=== PATIENT | male | born 1970 | race Caucasian/White ===

== ENCOUNTER 2020-06-01 19:50 | Emergency (ER) | payer OTHER, SELFPAY ==
--- NOTE | ~2020-06-01 | CT_ITS ---
EXAMINATION: CT abdomen pelvis wo con DATE: 06/01/2020 20:16 INDICATION: Left-sided abdomen pain. TECHNIQUE: Computed tomography (CT) of the abdomen and pelvis was performed without intravenous contr ast. The dose-length product was 1332.50 mGy-cm. Automated exposure control and iterative reconstruct ion technique were employed. COMPARISON: CT dated 06/27/2018. FINDINGS: Lung bases are unremarkable. Heart size normal. No significant pleural or pericardial effus ion. No significant vascular abnormality. No lymphadenopathy. Nonobstructive bowel gas pattern. No ab normal pelvic masses or fluid collections. Normal appendix. Fat-containing umbilical hernia. Status p ost left nephrectomy. Small amount of residual soft tissue near the nephrectomy bed contiguous with t he adrenal gland, consistent with resolving hematoma. Moderate lumbar spondylosis. The liver, spleen, pancreas, right adrenal gland and right kidney are unremarkable. Gallbladder is pr esent. Small ventral hernia containing fat. Small fat-containing umbilical hernia. No abnormal pelvic masses or fluid collections. IMPRESSION: 1. No acute abdominal abnormality. 2: Improved postsurgical changes in the left upper abdomen from previous nephrectomy. Small residual chronic hematoma/seroma contiguous with the adrenal gland. Reviewed, dictated and finalized at location A. GE WEAVER IMPRESSION: 1. No acute abdominal abnormality. 2: Improved postsurgical changes in the left upper abdomen from previous nephre ctomy. Small residual chronic hematoma/seroma contiguous with the adrenal gland .
[2020-06-01 19:53] VITALS: BP 137/87; PULSE 78; RESP 20; TEMP 36.6; O2SAT 96
--- NOTE | 2020-06-01 20:07 | ED.GENADULT ---
HPI - General Adult General Chief complaint: Abdominal Pain Stated complaint: ABD PAIN, BACK PAIN Time Seen by Provider: 06/01/20 20:00 Source: RN notes reviewed History of Present Illness HPI narrative: Patient presents emergency room from home for left-sided abdominal pain. Patient states he woke with pain at approximately 8 AM this morning the pain is located left lower abdomen and does not radiate described as aching in nature associated with nausea patient denies having vomiting or diarrhea he states he does currently have stage IV renal cell carcinoma in his left kidney has been removed he is followed at [facility] and is currently in between chemotherapy treatments he denies any fevers or chills chest pain shortness of breath diarrhea or any other symptoms Related Data Home Medications Medication Instructions Recorded Confirmed axitinib 5 mg tablet 5 mg PO ONCE tablet 01/04/20 01/11/20 hydrocodone 5 mg-acetaminophen 325 1 tablet PO Q8H PRN 01/04/20 01/11/20 mg tablet levothyroxine 50 mcg capsule 50 mcg PO DAILY 01/04/20 01/11/20 loperamide 2 mg capsule 2 mg PO Q6H PRN 01/04/20 01/11/20 ondansetron HCl 8 mg tablet 8 mg PO Q12H 01/04/20 01/11/20 sildenafil (pulm.hypertension) 20 20 mg PO TID PRN 01/04/20 01/11/20 mg tablet Allergies Allergy/AdvReac Type Severity Reaction Status Date / Time No Known Allergies Allergy Unverified 06/02/18 21:51 Review of Systems Review of Systems: Narrative: Gen.: Denies fevers or chills ENT: Denies congestion Respiratory: Denies shortness of breath or cough CV: Denies chest pain or palpitations GI: See HPI denies burning, urgency, frequency or hematuria Musculoskeletal: Denies back pain or muscle pain Neuro: Denies numbness, tingling, weakness or focal weakness Skin: Denies rash Except as documented, all other systems reviewed and negative PMF Past Medical History Medical History (Updated 06/01/20 @ 22:05 by Bryson Harrison DO) Kidney carcinoma Surgical History Surgical History H/O kidney removal Previous back surgery Social History Social History (Reviewed 06/01/20 @ 20:08 by LIBBY Nogueira Smoking status: Never smoker Second hand tobacco smoke exposure: No Alcohol intake: current Substance use: never Gender identity (if verbalized by the patient): Male Exam Narrative: Exam Narrative: APPEARANCE: No acute distress, nontoxic, resting in bed HEENT: Normocephalic, atraumatic, OMM RESPIRATORY: No respiratory distress, clear to auscultation bilaterally with no rhonchi wheezing or rales CARDIOVASCULAR: RRR s murmur ABDOMINAL: Soft, nondistended tender to palpation over left lateral abdomen and left flank no tenderness in right upper quadrant right lower quadrant and left upper quadrant pain increased with rotation of the torso right lower quadrant no rebound or guarding MUSCULOSKELETAl: Moves all extremities. No clubbing, cyanosis or edema. NEURO: Awake and alert. Following commands, speech normal, no focal deficits SKIN:: Warm, dry. Normal Color PSYCHIATRIC: Normal affect/mood Course Course Emergency Course: Upon further discussion with the patient it appears the patient has been moving over the past week and lifting boxes suspect possible musculoskeletal injury patient is already on hydrocodone at home which she will take for pain will refrain from prescribing any muscle relaxers the patient also cannot take NSAIDs secondary to solitary kidney Discussed with patient results of workup and diagnosis. Discussed need for follow-up with primary care, proper use of medication, and reasons to return to the emergency department. Patient understands and agrees to current treatment plan Vital Signs Vital signs: Vital Signs Temperature 97.9 F 06/01/20 19:53 Pulse Rate 78 06/01/20 19:53 Respiratory Rate 20 06/01/20 19:53 Blood Pressure 137/87 06/01/20 19:53 Pulse Ox
[2020-06-01 20:13] LABS: Basophils Percent Auto 0.5 % (0.2-1.2); Eosinophils Absolute Auto 0.1 K/mm3 (0-0.3); Eosinophils Percent Auto 1.7 % (0-4.4); Hematocrit 41.2 % (42.0-52.0); Hemoglobin 13.7 g/dL (14.0-18.0); Immature Granulocyte Absolute 0.03 K/mm3 (0.00-0.031); Immature Granulocyte Percent A 0.4 % (0-0.5); Lymphocytes Absolute Auto 1.43 K/mm3 (0.9-3.2); Lymphocytes Percent Auto 18.3 % (18.3-44.2); Mean Corpuscular HGB Conc 33.3 g/dl (32-36); Mean Corpuscular Hemoglobin 30.3 pg (26-34); Mean Corpuscular Volume 91.2 fl (80-100); Mean Platelet Volume 8.9 fl (7.4-10.4); Monocytes Absolute Auto 0.6 K/mm3 (0.1-0.6); Monocytes Percent Auto 7.9 % (2.6-8.5); Neutrophils Absolute Auto 5.6 K/mm3 (1.3-6.7); Neutrophils Percent Auto 71.2 % (45.5-73.1); Platelet Count Result 277 k/mm3 (150-375); Red Blood Count 4.52 M/mm3 (4.6-6.20); Red Cell Distribution Width 12.3 % (11.5-14.5); White Blood Count 7.8 K/mm3 (4.5-10.0)
[2020-06-01] MEDS: MORPHINE SULFATE (*CRX) 4 MG/ML INJ IV PUSH (20:24)
[2020-06-01] MEDS: ONDANSETRON INJ 4 MG/2 ML VIAL IV PUSH (20:24)
[2020-06-01] MEDS: SODIUM CHLORIDE 0.9% IV 1,000 ML 999 ML IV CONT (20:24)
[2020-06-01 20:25] LABS: Alanine Aminotransferase 29 U/L (4-50); Albumin Level 4.2 g/dL (3.5-5.1); Alkaline Phosphatase 79 U/L (38-126); Anion Gap 10 mmol/L (8-16); Aspartate Amino Transferase 38 U/L (17-59); Bilirubin,Total 0.3 mg/dL (0.2-1.3); Blood Urea Nitrogen 21 mg/dL (9-20); Calcium 9.4 mg/dL (8.4-10.2); Carbon Dioxide 26 mmol/L (22-30); Chloride 103 mmol/L (98-107); Estimated CRCL calculation 78 ml/min; Estimated Glomerular Filt Rate 58; Glucose 112 mg/dL (75-110); Lipase 109 U/L (23-300); Potassium 4.6 mmol/L (3.4-5.0); Sodium 139 mmol/L (137-145)
[2020-06-01 21:54] LABS: Add Urine Microscopic? NO; Appearance Urine Clear (Clear); Bilirubin Urine Negative (Negative); Blood Urine Negative (Negative); Color Urine Yellow (Yellow); Glucose Urine UA Negative (Negative); Ketones Urine Negative (Negative); Leukocyte Esterase Ur Negative LEU/UL (Negative); Nitrate Urine Negative (Negative); Protein Urine Negative (Negative); Specific Grav Ur 1.026 (1.001-1.035); Urobilinogen Urine Negative mg/dL (<2.0)
[2020-06-01] MEDS: MORPHINE SULFATE (*CRX) 2 MG/ML INJ IV PUSH (22:10)
[2020-06-01 22:40] VITALS: BP 139/80; PULSE 59; RESP 16; TEMP 36.8; O2SAT 97
== END 2020-06-01 22:42 | disposition home or self-care (01) ==
PROVIDERS: Emergency Provider Emergency Medicine; PCP Physician Assistant
DX: R10.32 Left lower quadrant pain (principal); C64.2 Malignant neoplasm of left kidney, except renal pelvis; Z90.5 Acquired absence of kidney
CPT/HCPCS: 36415; 74176; 80053; 81003; 83690; 85025; 96361; 96374; 96375; 96376; 99284; J2270; J2405; J7030

== ENCOUNTER 2020-08-22 10:58 | Outpatient (CLI) | payer OTHER, SELFPAY ==
--- NOTE | ~2020-08-22 | XR_ITS ---
EXAMINATION: XR lumbar spine 6V w bending EXAM DATE: 08/22/2020 11:30 INDICATION: M54.5 - Low back pain. No known recent injury. TECHNIQUE: Lumber spine frontal, lateral, bilateral oblique projections. Coned down frontal and lat eral L5-S1 lumbar projections for interpretation. Additional lateral flexion and lateral extension p rojections obtained. There are no prior studies for comparison. FINDINGS: Vertebral bodies are aligned in the lateral projections. There is mild to moderate disc dis ease at L4-5 and L5-S1, mild at the other lumbar levels. There is no spondylolysis. There is moderate lumbar facet arthropathy at the mid and lower lumbar levels. Vertebral body heights are maintained. Sacrum, sacroiliac joints, sacral arcuate lines are intact. Paraspinal soft tissue is unremarkable. IMPRESSION: 1. Moderate lumbar facet arthropathy. 2. Mild to moderate lower lumbar disc disease. Reviewed, dictated and finalized at location A.
--- NOTE | ~2020-08-22 | XR_ITS ---
EXAMINATION: XR hip LT min 3V w AP pelvis EXAM DATE: 08/22/2020 11:30 INDICATION: No known recent injury provided at this time. Pain of the left hip. TECHNIQUE: Left hip frontal, crosstable lateral and 'frog-leg' projections for interpretation. Fronta l projection pelvis. There is no prior study for comparison. FINDINGS: Smooth left hip femoral head contour, no radiographic evidence of avascular necrosis. Ther e is mild symmetric bilateral hip primary osteoarthritis. There are no acute fractures or dislocation s identified. There is no subcutaneous gas. The soft tissue is unremarkable. There are no radiopa que foreign bodies. IMPRESSION: Mild bilateral hip osteoarthritis. Reviewed, dictated and finalized at location A.
== END 2020-08-22 10:59 | disposition home or self-care (01) ==
PROVIDERS: PCP Physician Assistant; Visit Provider Physician Assistant
DX: M16.0 Bilateral primary osteoarthritis of hip (principal); M51.36 Other intervertebral disc degeneration, lumbar region
CPT/HCPCS: 72114; 73502

== ENCOUNTER 2021-02-04 08:32 | Outpatient (CLI) | payer OTHER, SELFPAY ==
--- NOTE | 2021-02-04 | EST_ITS ---
Patient Info Name: Eric Andujar Age: 50 years : 1970 Gender: Male Ht: 70 in Wt: 175 lbs BSA: 1.99 m2 HR: 60 bpm BP: 155 / 97 mmHg Heart Rhythm: Sinus Rhythm Exam Date: 02/04/2021 9:56 AM Exam Location: [facility] Stress Patient Status: Outpatient Admit Date: 02/04/2021 Staff Ordering Physician: Brian Gusman PA-C Attending Provider: Brian Gusman PA-C Exercise Technologist: Piedad Dean CT Exercise Physician: Josue Singelton DO Exam Type: CA stress romana w NM Study Info Indications R42 - Dizziness and giddiness R06.02 - Shortness of breath A regadenoson stress test was performed. Summary 1. 1. Negative lexiscan stress test for ischemic ST changes by ECG criteria. 2. 2. Baseline hypertension. 3. 3. Nuclear scan to follow and will be reported separately. Please correlate with it. 4. 4. Patient informed of the above results. Protocol: Lexiscan Rest HR: 60 bpm Peak HR: 77 bpm Rest Sys BP: 155 mmHg Peak Sys BP: 157 mmHg Max Pred HR: 169 bpm % Max Pred HR: 46 % Target HR: 144 bpm Max RPP: 12,089 bpm*mmHg Termination Reason: Completed protocol Cardiac Symptoms: Shortness of breath Rest Pineda BP: 97 mmHg Peak Pineda BP: 100 mmHg Total Dose: 0.4 mg Resting ECG Sinus rhythm, cannot r/o septal infarct, age indeterminate. Stress ECG No ST changes. Arrhythmias None. Report Signatures
--- NOTE | ~2021-02-04 | NM_ITS ---
EXAMINATION: NM romana stress w perfusion DATE: 02/04/2021 11:01 INDICATION: Shortness of breath, dizziness and giddiness TECHNIQUE: Rest images were obtained following intravenous administration of 9.7 mCi Tc99m tetrofosmi n (Myoview). The patient was infused intravenously with Lexiscan (Regadenoson). Then, 29.4 mCi Tc99m tetrofosmin (Myoview) was administered intravenously, and stress images were obtained. Data was recon structed into short axis and horizontal and vertical long axis SPECT images. Gated SPECT images were also obtained. COMPARISON: None. FINDINGS: There is no definite reversible or fixed perfusion abnormality to suggest ischemia or infar ction. There is normal left ventricular chamber size, wall motion and ejection fraction. Left ventr icular ejection fraction measures 48%. IMPRESSION: 1. Normal myocardial perfusion at rest and during stress. 2. Left ventricular ejection fraction measuring 48%. Reviewed, dictated and finalized at location A.
== END 2021-02-04 08:33 | disposition home or self-care (01) ==
PROVIDERS: PCP Physician Assistant; Visit Provider Physician Assistant
DX: R06.02 Shortness of breath (principal); R42 Dizziness and giddiness
CPT/HCPCS: 78452; 93017; A9502; J2785

== ENCOUNTER 2021-02-25 14:07 | Outpatient (CLI) | payer OTHER, SELFPAY ==
--- NOTE | 2021-02-25 17:09 | WPDPFTINT ---
PFT Procedure Performed PFT Procedure Performed Spirometry with Pre/Post Bronchodilator Plethysmography (Lung Vol) Diffusing Cap (DLCO) Flow Vol Loop PFT Interpretation This is a pulmonary function test with pre and post-bronchodilator spirometry, plethysmography and diffusing capacity. The test was performed and results interpreted in accordance with the 2019 and 2005 ATS/ERS Task Force guidelines respectively using the Global Lung Function Initiative-2012 reference equations. Patient demonstrated good effort and cooperation. Reproducibility criteria were met. The quality of the pre bronchodilator spirometry maneuver was Grade A and post bronchodilator spirometry maneuver was Grade A. Findings: Spirometry: the contour of the inspiratory and expiratory flow tracing are normal. The pre bronchodilator FVC is 4.26 L, 83% predicted. The pre bronchodilator FEV1 is 3.35 L, 84% predicted. The FEV1: FVC ratio 79%. The post bronchodilator FVC is 4.63 L, representing a 9% increase. The post bronchodilator FEV1 is 3.70 L, representing a 10% increase. Plethysmography: The total lung capacity is 6.08 L, 85% predicted. The functional residual capacity is 2.46 L, 67% predicted. The residual volume is 1.61 L, 77% predicted. Diffusing capacity: The absolute diffusion capacity is 19.6, 64% predicted. The diffusing capacity corrected for alveolar volume is 3.38, 76% predicted. Impression: The spirometry is normal without evidence of an obstructive abnormality. There is no significant improvement after inhaling a single dose of albuterol. The lung volumes are normal. The diffusing capacity is normal. There are no prior studies for comparison
== END 2021-02-25 14:08 | disposition home or self-care (01) ==
LOC: ANHPFT 14:08
PROVIDERS: PCP Internal Medicine; Visit Provider Physician Assistant
DX: R06.02 Shortness of breath (principal)
CPT/HCPCS: 94060; 94726; 94729

== ENCOUNTER 2021-04-10 08:24 | Emergency (ER) | payer OTHER, SELFPAY ==
[2021-04-10] VITALS (23 sets, daily range): BP systolic 139–160; BP diastolic 83–99; PULSE 40–63; RESP 9–18; TEMP 36.6–37; O2SAT 96–100
--- NOTE | ~2021-04-10 | XR_ITS ---
EXAMINATION: XR chest 2V DATE: 04/10/2021 09:37 INDICATION: Left-sided chest pain TECHNIQUE: PA and lateral views of the chest are obtained. COMPARISON: 05/25/2018 FINDINGS: The lungs are free of acute opacities. There is atelectasis of the lung bases. There is no pleural effusion or pneumothorax. The cardiomediastinal silhouette is normal. There are bridging oste ophytes at multiple levels in the spine, consistent with diffuse idiopathic skeletal hyperostosis (DI SH). IMPRESSION: 1. No acute cardiopulmonary abnormality. Reviewed, dictated and finalized at location B.
--- NOTE | ~2021-04-10 | CT_ITS ---
EXAMINATION: CT abdomen pelvis wo con DATE: 04/10/2021 11:38 INDICATION: Left-sided flank pain, nausea and vomiting TECHNIQUE: Computed tomography (CT) of the abdomen and pelvis was performed without intravenous contr ast. Automated exposure control and iterative reconstruction technique were employed. The dose-length product was 604.65 mGy-cm. COMPARISON: None FINDINGS: Mild atelectasis in the lingula and bilateral lower lobes. 3-4 mm intrafissural lymph node along the inferior left major fissure. Heart size is normal. Decreased attenuation of the blood pool relative t o the myocardium consistent with anemia. No pericardial effusion. Liver, gallbladder, spleen, pancrea s, right kidney and bilateral adrenal glands are normal. Status post left nephrectomy for reported renal cell carcinoma. There is nodular soft tissue at the p osterior medial margin of the nephrectomy bed likely indicating the underlying posterior medial diaph ragm and proximal psoas muscle and which along with multiple enlarged left para-aortic lymph nodes mo st consistent with local recurrence and local metastatic disease. Mild scattered diverticulosis without adjacent inflammatory change to suggest diverticulitis. Small b owel and appendix are normal. Tiny fat-containing umbilical and supraumbilical ventral hernias. Bladd er is normal. No free intraperitoneal gas or fluid. Mild lumbar dextrocurvature with moderate spondyl osis. There are bridging osteophytes at multiple levels in the lower thoracic spine consistent with d iffuse idiopathic skeletal hyperostosis (DISH). No suspicious lytic or blastic bone lesions. IMPRESSION: 1. Nodular soft tissue deposits at the left nephrectomy bed and enlarged left para-aortic lymph nodes concerning for local recurrence of renal cell carcinoma and local metastatic disease. Reviewed, dictated and finalized at location A. IMPRESSION: 1. Nodular soft tissue deposits at the left nephrectomy bed and enlarged left p jazz-aortic lymph nodes concerning for local recurrence of renal cell carcinoma and local metastatic disease.
--- NOTE | 2021-04-10 09:23 | ECG_ITS ---
Measurements Intervals [place] Rate: 44 P: -3 NC: 184 QRS: 14 QRSD: 94 T: 48 QT: 433 QTc: 374 Interpretive Statements SINUS BRADYCARDIA EARLY PRECORDIAL R/S TRANSITION ABNORMAL ECG Electronically Signed On 04-10-2021 10:30:42 CDT by Josue Singleton D.O.
--- NOTE | 2021-04-10 09:24 | ED.ABDPAIN ---
HPI - Abdominal Pain General Chief Complaint: Abdominal Pain Stated Complaint: abd pain/vomiting Time Seen by Provider: 04/10/21 09:05 Source: patient Mode of arrival: ambulatory Limitations: no limitations History of Present Illness HPI narrative: This is a 50 year old male that presents to the ER for left sided mid back pain present over the last couple of weeks. Reports the pain is intermittent in nature. Worse with certain positions. The pain radiated from the left flank into the abdomen and chest. No known alleviating factors. Reports history of renal cell carcinoma and history of left nephrectomy. His oncologist is at [facility]. Reports nausea and vomiting today with the pain which prompted him to be seen. Denies fever, cough, shortness of breath, or lower extremity edema. Related Data Home Medications Medication Instructions Recorded Confirmed hydrocodone 5 mg-acetaminophen 325 1 tablet PO Q8H PRN 01/04/20 03/16/21 mg tablet loperamide 2 mg capsule 2 mg PO Q6H PRN 01/04/20 03/16/21 ondansetron HCl 8 mg tablet 8 mg PO Q12H 01/04/20 03/16/21 sildenafil (pulm.hypertension) 20 20 mg PO TID PRN 01/04/20 03/16/21 mg tablet levothyroxine 50 mcg capsule 200 mcg PO DAILY cap 08/22/20 03/16/21 cabozantinib 40 mg tablet 40 mg PO DAILY 01/28/21 03/16/21 Allergies Allergy/AdvReac Type Severity Reaction Status Date / Time No Known Allergies Allergy Verified 04/10/21 10:28 Review of Systems Review of Systems: CONSTITUTIONAL: Denies fever CARDIOVASCULAR: Reports chest pain. Denies edema. RESPIRATORY: Denies cough or dyspnea. GASTROINTESTINAL: Reports abdominal pain, nausea, vomiting GENITOURINARY: Denies dysuria or hematuria. MUSCULOSKELETAL: Reports back pain, joint pain, and myalgia. All systems reviewed & are unremarkable except as noted in HPI and below PMFSH Past Medical History Medical History (Updated 04/10/21 @ 14:16 by Lisa Parr PA-C) Kidney carcinoma Surgical History Surgical History H/O kidney removal Previous back surgery Social History Social History Smoking status: Never smoker Second hand tobacco smoke exposure: No Alcohol intake: current Alcohol use details: very little Substance use: never Gender identity (if verbalized by the patient): Male Exam Narrative: GENERAL: Well-appearing, well-nourished, and in no acute distress. HEAD: Normocephalic, atraumatic. EYES: EOMI. ENT: Mucous membranes moist. Oropharynx without tonsillar hypertrophy exudate or other lesions. CHEST: Clear to auscultation. No respiratory distress. No wheezes rales or rhonchi HEART: Regular rate and rhythm. No murmur heard. Normal peripheral pulses. ABDOMEN: Soft, nondistended, normal active bowel sounds. Tender to palpation throughout the left side of the abdomen, without guarding. No CVA tenderness EXTREMITIES: Normal range of motion. No edema. SKIN: Warm, dry, no rash. NEURO: No focal deficits. Alert and oriented x3. PSYCH: Normal mood and affect Course Consultations Consultation #1: Spoke with SAURAV Torres with Dr. Cantor about patient and workup. Patient will be placed on a Holter monitor to further evaluate bradycardia. He will follow up with patient in clinic. Date: 04/10/21 Time: 13:30 Vital Signs Vital signs: Vital Signs Blood Pressure 160/94 H 04/10/21 08:29 Pulse Oximetry 97 04/10/21 08:29 Temperature 97.8 F 04/10/21 10:47 Pulse Rate 47 L 04/10/21 12:51 Respiratory Rate 13 04/10/21 12:51 Blood Pressure 150/84 H 04/10/21 12:51 Pulse Oximetry 99 04/10/21 12:51 MDM - Abdominal Pain MDM Narrative Medical decision making narrative: Patient presents the emergency department for left flank pain radiating into the abdomen. He is afebrile and nontoxic-appearing. Vitals are stable. Patient's heart rate in the 50s and 60s. He does bradyca
[2021-04-10 10:36] LABS: Basophils Absolute Auto 0.1 K/mm3 (0.0-0.1); Eosinophils Absolute Auto 0.2 K/mm3 (0-0.3); Eosinophils Percent Auto 3.8 % (0-4.4); Hematocrit 36.7 % (42.0-52.0); Hemoglobin 12.2 g/dL (14.0-18.0); Immature Granulocyte Absolute 0.02 K/mm3 (0.00-0.031); Immature Granulocyte Percent A 0.3 % (0-0.5); Lymphocytes Absolute Auto 1.28 K/mm3 (0.9-3.2); Lymphocytes Percent Auto 22.3 % (18.3-44.2); Mean Corpuscular HGB Conc 33.2 g/dl (32-36); Mean Corpuscular Hemoglobin 31.9 pg (26-34); Mean Corpuscular Volume 95.8 fl (80-100); Mean Platelet Volume 8.7 fl (7.4-10.4); Monocytes Absolute Auto 0.5 K/mm3 (0.1-0.6); Monocytes Percent Auto 8.6 % (2.6-8.5); Neutrophils Absolute Auto 3.7 K/mm3 (1.3-6.7); Platelet Count Result 252 k/mm3 (150-375); Red Blood Count 3.83 M/mm3 (4.6-6.20); Red Cell Distribution Width 13.2 % (11.5-14.5); White Blood Count 5.7 K/mm3 (4.5-10.0)
[2021-04-10] MEDS: ONDANSETRON INJ 4 MG/2 ML VIAL IV PUSH (10:36)
[2021-04-10] MEDS: MORPHINE SULFATE (*CRX) 2 MG/ML INJ IV PUSH (10:36)
[2021-04-10 10:37] LABS: Add Urine Microscopic? NO; Appearance Urine Clear (Clear); Bilirubin Urine Negative (Negative); Blood Urine Negative (Negative); Color Urine Yellow (Yellow); Glucose Urine UA Negative (Negative); Ketones Urine Negative (Negative); Leukocyte Esterase Ur Negative LEU/UL (Negative); Nitrate Urine Negative (Negative); Protein Urine Negative (Negative); Specific Grav Ur 1.026 (1.001-1.035); Urobilinogen Urine Negative mg/dL (<2.0)
[2021-04-10 10:46] LABS: INR 0.9; Prothrombin Time 12.2 Seconds (11.1-14.7)
[2021-04-10 10:47] LABS: Partial Thromboplastin Time 26.4 SECONDS (22.3-36.8)
[2021-04-10 10:54] LABS: Alanine Aminotransferase 26 U/L (4-50); Albumin Level 4.2 g/dL (3.5-5.1); Alkaline Phosphatase 54 U/L (38-126); Anion Gap 9 mmol/L (8-16); Aspartate Amino Transferase 43 U/L (17-59); Bilirubin,Total 0.5 mg/dL (0.2-1.3); Blood Urea Nitrogen 15 mg/dL (9-20); Calcium 8.7 mg/dL (8.4-10.2); Carbon Dioxide 19 mmol/L (22-30); Chloride 112 mmol/L (98-107); Estimated CRCL calculation 108 ml/min; Estimated Glomerular Filt Rate > 60; Glucose 99 mg/dL (65-110); Lipase 51 U/L (23-300); Potassium 5.4 mmol/L (3.4-5.0); Sodium 140 mmol/L (137-145)
[2021-04-10 11:07] LABS: Troponin I < 0.012 ng/mL (0.000-0.034)
[2021-04-10] MEDS: SODIUM CHLORIDE 0.9% IV 500 ML 999 ML IV CONT (11:24)
--- NOTE | 2021-04-10 11:30 | PC.NURSE ---
Pt placed on heart monitor. Resting heart rate is in the 40s. PA Lisa aware
--- NOTE | 2021-04-10 11:31 | PC.NURSE ---
Pt off floor to CT scan
--- NOTE | 2021-04-10 12:55 | PC.NURSE ---
Pt resting heart rate still low 50s-40s. PA Lisa aware, discussed no morphine at this time. Not given
[2021-04-10] MEDS: HYDROcodone/acetaminophen (*CRX) 5-325 MG TABLET 1 TAB PO (13:02)
[2021-04-10 13:14] LABS: Potassium 4.7 mmol/L (3.4-5.0)
--- NOTE | 2021-04-17 11:57 | WPDHOLTEREM ---
Holter/Event Monitor Holter/Event Monitor Date of procedure: 04/10/21 Holter/Event Procedure: 48 Hr Holter Monitor Indications: Bradycardia Conclusion: 1. 48 hour holter monitor on 04/10/21. 2. Underlying rhythm is sinus rhythm. HR range 32-124 bpm; average HR 60 bpm. HR at 32 bpm was at 11:37. 3. There are 864 premature supraventricular complexes, 35 supraventricular couplets, 3 supraventricular bigeminy. No supraventricular tachycardia. 4. There are 3,938 premature ventricular complexes, 31 ventricular couplets, 1 ventricular triplet, 8 ventricular bigeminy, and 35 ventricular trigeminy. No ventricular tachycardia. 5. No sinoatrial or atrioventricular blocks. No significant pauses greater than 2 seconds. 6. No symptoms available for correlation.
== END 2021-04-10 14:36 | disposition home or self-care (01) ==
PROVIDERS: Physician Assistant; Emergency Provider Emergency Medicine; PCP Internal Medicine
DX: R10.9 Unspecified abdominal pain (principal); C64.2 Malignant neoplasm of left kidney, except renal pelvis; R00.1 Bradycardia, unspecified; Z90.5 Acquired absence of kidney
CPT/HCPCS: 36415; 71046; 74176; 80053; 81003; 83690; 84132; 84484; 85025; 85380; 85610; 85730; 93005; 93225; 93226; 96361; 96374; 96375; 99284; A9270; J0131; J2270; J2405; J7040

== ENCOUNTER 2022-04-04 06:18 | Emergency (ER) | payer BC, SELFPAY ==
[2022-04-04] VITALS (26 sets, daily range): BP systolic 122–166; BP diastolic 67–138; PULSE 38–65; RESP 11–20; TEMP 36.6; O2SAT 92–99
--- NOTE | ~2022-04-04 | XR_ITS ---
EXAMINATION: XR chest 1V portable DATE: 04/04/2022 07:06 INDICATION: Dyspnea TECHNIQUE: frontal view of the chest was obtained. COMPARISON: Chest radiograph dated 04/10/2021 FINDINGS: Unchanged mild elevation of left hemidiaphragm. This is new mild opacities in the left lower lung zon e. No pleural effusion or pneumothorax. Cardiomediastinal silhouette remains within normal limits for AP technique. IMPRESSION: 1. Small lung volumes with mild opacities in the left lower lung zone which could represent atelectas is/scarring or pneumonia. Reviewed, dictated and finalized at location A. IMPRESSION: 1. Small lung volumes with mild opacities in the left lower lung zone which cou ld represent atelectasis/scarring or pneumonia.
--- NOTE | ~2022-04-04 | CT_ITS ---
EXAMINATION: CTA chest PE protocol DATE: 04/04/2022 08:11 INDICATION: Shortness of breath and elevated d-dimer. TECHNIQUE: Computed tomography (CT) pulmonary angiogram of the chest was performed with 100 mL Omnipa que-350 intravenous contrast. Additional 3D reconstructions utilizing coronal maximum intensity proje ction (MIP) were performed. Automated exposure control and iterative reconstruction technique were em ployed. The dose-length product was 756.43 mGy-cm. COMPARISON: None FINDINGS: Excellent contrast opacification of the pulmonary arteries. There is mild streak artifact from dense contrast in the left brachiocephalic vein, superior vena cava and right atrium. Mild to moderate basi lar predominant scattered respiratory motion artifact. This decreases sensitivity in the smaller basi lar subsegmental pulmonary arteries. No pulmonary embolism. 3.1 x 3.0 cm right hilar mass which surro unds and narrows a short segment of the superior segmental pulmonary artery of the right lower lobe. Small left pleural effusion. Mild groundglass and linear opacities in the dependent lungs consistent with atelectasis. 7 mm nodule along the caudal-most aspect of the left major fissure. Cardiomegaly. No pericardial effusion. Thoracic aorta is normal in caliber with no dissection. Calcif ied left hilar lymph nodes consistent with old granulomatous disease. Again seen are postoperative change of prior left nephrectomy. There are a few new nodular soft tissu e deposits along the suture line at the nephrectomy bed which raises concern for local recurrence. Th e 2 largest soft tissue deposits measuring 1.6 x 1.9 cm and 2.1 x 1.5 cm. The soft tissue extends to the left davion of the diaphragm which appears thickened and with soft tissue mass eroding into the adj acent left posterior aspect of the T12 as well as the anterior margin of the medial head of the poste rior left 12th rib. Interval enlargement of left para-aortic lymphadenopathy, the largest measuring 1 .8 x 1.4 cm as well as a new enlarged retrocrural lymph node measuring 1.6 x 1.4 cm. 1 mm nonobstruct ing right renal stone. Subtle approximately 1 cm low-attenuation cyst at the upper pole of the right kidney. Persistent minimal focal perisplenic ascites. Thoracic kyphosis with chronic mild anterior we dging of a few mid and lower thoracic vertebral bodies. Moderate thoracic spondylosis with bridging o steophytes at multiple levels consistent with diffuse idiopathic skeletal hyperostosis (DISH). No oth er suspicious lytic or blastic bone lesions. IMPRESSION: 1. No pulmonary embolism. Sensitivity decreased in some of the smaller basilar subsegmental pulmonary arteries due to respiratory motion. 2. 3.1 x 3.0 cm right hilar mass which surrounds and narrows the pulmonary opacity superior segment o f the right lower lobe which is concerning for malignancy either primary or more likely metastatic ri ght hilar lymph nodes. 3. Status post left nephrectomy with new nodular soft tissue deposits the left nephrectomy bed, porti on of which appears to involve the left davion of the diaphragm and eroding into the adjacent left side of the T12 vertebral body and posterior left 12th rib suggestive of recurrent renal cell carcinoma. 4. Likely metastatic left para-aortic and retrocrural lymphadenopathy. 4. Nonobstructing 1 mm right renal stone. Reviewed, dictated and finalized at location A. IMPRESSION: 1. No pulmonary embolism. Sensitivity decreased in some of the smaller basilar subsegmental pulmonary arteries due to respiratory motion. 2. 3.1 x 3.0 cm right hilar mass which surrounds and narrows the pulmonary opac ity superior segment of the right lower lobe which is concerning for malignancy either primary or more likely metastatic right hilar lymph nod
--- NOTE | 2022-04-04 06:54 | ED.SOB ---
HPI - SOB/Dyspnea General Chief Complaint: Shortness of Breath/Dyspnea <Sly Moran MD - Last Filed: 04/04/22 06:58> Stated Complaint: SOB <Sly Moran MD - Last Filed: 04/04/22 06:58> Time Seen by Provider: 04/04/22 06:44 <Sly Moran MD - Last Filed: 04/04/22 06:58> Source: patient <Sly Moran MD - Last Filed: 04/04/22 06:58> Mode of arrival: ambulatory <Sly Moran MD - Last Filed: 04/04/22 06:58> Limitations: no limitations <Sly Moran MD - Last Filed: 04/04/22 06:58> History of Present Illness HPI Narrative: this is a 51-year-old gentleman that presents with increasing shortness of breath, for the past 5 days has been having issues with shortness of breath worsening over the last 24hours currently there is no cough no chest pain no nausea or vomiting in no fever chills, patient has a history of stage IV renal cell carcinoma with metastases and is being treated at the [facility] and currently takes a daily chemo tablet. Patient is having mild abdominal pain that he states this is usual for him nothing worse no flank pain does have some dysuria with no peripheral edema. <Sly Moran MD - Last Filed: 04/04/22 06:58> MD elicited complaint: shortness of breath <Sly Moran MD - Last Filed: 04/04/22 06:58> Onset (ago): day(s) <Sly Moran MD - Last Filed: 04/04/22 06:58> Severity: moderate <Sly Moran MD - Last Filed: 04/04/22 06:58> Exacerbating factors: nothing <Sly Moran MD - Last Filed: 04/04/22 06:58> Relieving factors: nothing <Sly Moran MD - Last Filed: 04/04/22 06:58> Related Data Home Medications: Home Medications Medication Instructions Recorded Confirmed levothyroxine 50 mcg capsule 200 mcg PO DAILY 08/22/20 04/04/22 gabapentin 300 mg capsule 300 mg PO TID 01/01/22 04/04/22 levothyroxine 100 mcg tablet 100 mcg PO DAILY 01/01/22 04/04/22 methylphenidate HCl 5 mg tablet 5 mg PO BID 01/01/22 04/04/22 oxycodone 20 mg tablet 20 mg PO PRN PRN Pain 04/04/22 04/04/22 oxycodone myristate 36 mg capsule See Rx Instructions .Route .COMPLEX 04/04/22 04/04/22 sprinkle extended release 12hr(DON'T CRUSH) (Xtampza ER) pazopanib 200 mg tablet (Votrient) 200 mg PO DAILY 04/04/22 04/04/22 prochlorperazine maleate 5 mg 5 mg PO PRN PRN Nausea 04/04/22 04/04/22 tablet <Sly Moran MD - Last Filed: 04/04/22 06:58> Allergies/Adverse Reactions: Allergies Allergy/AdvReac Type Severity Reaction Status Date / Time No Known Allergies Allergy Verified 01/01/22 15:34 <Sly Moran MD - Last Filed: 04/04/22 06:58> Review of Systems Review of Systems: All systems reviewed & are unremarkable except as noted in HPI and below <Sly Moran MD - Last Filed: 04/04/22 06:58> [facility] Past Medical History Medical History: Medical History (Updated 04/04/22 @ 09:49 by Mingo Durham MD) Kidney carcinoma <Sly Moran MD - Last Filed: 04/04/22 06:58> Surgical History Surgical History: Surgical History H/O kidney removal Previous back surgery <Sly Moran MD - Last Filed: 04/04/22 06:58> Social History Social History: Social History Smoking status: Never smoker Second hand tobacco smoke exposure: No Alcohol intake: current Alcohol use details: very little Substance use: never Gender identity (if verbalized by the patient): Male <Sly Moran MD - Last Filed: 04/04/22 06:58> Exam Const: General: healthy appearing and no acute distress <Sly Moran MD - Last Filed: 04/04/22 06:58> Limitations: no limitations <Sly Moran MD - Last Filed: 04/04/22 06:58> HENMT: Head: normal to inspection <Sly Moran MD - Last Filed: 04/04/22 06:58> Face/N
--- NOTE | 2022-04-04 07:02 | PC.NURSE ---
Pt given warm blanket, Report given to CLAY Rangel
[2022-04-04] MEDS: IPRATROPIUM 0.5 MG/ALBUTEROL SULFATE 2.5 MG AMPUL.NEB 3 ML INHALATION (07:06)
--- NOTE | 2022-04-04 07:10 | PC.NURSE ---
REPORT FROM CLAY BRAVO AT THIS TIME. PT IS GETTING LABS DRAWN, EKG, NEB TX, XRAY. AT BEDSIDE. NAD NOTED. WILL CONTINUE TO MONITOR.
--- NOTE | 2022-04-04 07:14 | ECG_ITS ---
Measurements Intervals [place] Rate: 55 P: 15 MS: 200 QRS: 4 QRSD: 105 T: 33 QT: 417 QTc: 400 Interpretive Statements SINUS BRADYCARDIA MINIMAL VOLTAGE CRITERIA FOR LVH, CONSIDER NORMAL VARIANT BORDERLINE ECG COMPARED TO ECG 04/10/2021 09:58:33 NO SIGNIFICANT CHANGES Electronically Signed On 04-04-2022 16:33:12 CDT by Quan Mast M.D.
[2022-04-04 07:17] LABS: Basophils Absolute Auto 0.02 K/mm3 (0.00-0.10); Basophils Percent Auto 0.4 % (0.0-1.0); Eosinophils Absolute Auto 0.13 K/mm3 (0.02-0.50); Eosinophils Percent Auto 2.3 % (1.0-6.0); Hematocrit 32.3 % (40.0-54.0); Hemoglobin 10.6 g/dL (14.0-18.0); Immature Granulocyte Absolute 0.02 K/mm3 (0.00-0.00); Immature Granulocyte Percent A 0.4 % (0.0-0.0); Lymphocytes Percent Auto 17.6 % (18.0-42.0); Mean Corpuscular HGB Conc 32.8 g/dL (32.0-36.0); Mean Corpuscular Hemoglobin 30.5 pg (27.0-31.0); Mean Corpuscular Volume 92.8 fL (78.0-102.0); Mean Platelet Volume 8.2 fl (8.7-11.0); Monocytes Percent Auto 8.8 % (2.0-11.0); Neutrophils Percent Auto 70.5 % (50.0-70.0); Platelet Count Result 252 K/mm3 (150-420); Red Blood Count 3.48 M/mm3 (4.70-6.10); Red Cell Distribution Width 12.1 % (11.6-14.4); White Blood Count 5.7 K/mm3 (4.8-10.8)
--- NOTE | 2022-04-04 07:22 | PC.NURSE ---
WATER PROVIDED REQUESTED PER ERP. WILL CONTINUE TO MONITOR. PT DENIES ANY OTHER NEEDS OR COMPLAINTS.
[2022-04-04 07:26] LABS: Appearance Urine Clear (Clear); Bilirubin Urine Negative (Negative); Blood Urine Negative (Negative); Glucose Urine UA Negative (Negative); Ketones Urine Negative (Negative); Leukocyte Esterase Ur Negative LEU/UL (Negative); Nitrate Urine Negative (Negative); Protein Urine Negative (Negative); Specific Grav Ur 1.025 (1.010-1.020); Urobilinogen Urine 0.2 mg/dL (0.2-1.0)
[2022-04-04 07:29] LABS: Add Urine Microscopic? NO; Color Urine Light Yellow (Yellow)
[2022-04-04 07:32] LABS: INR 0.9; Partial Thromboplastin Time 29.1 SEC (23.90-30.70); Prothrombin Time 10.4 Seconds (9.50-12.10)
[2022-04-04 07:37] LABS: D Dimer 0.84 mg/L (0.19-0.50)
[2022-04-04 07:39] LABS: Alanine Aminotransferase 20 U/L (16-63); Albumin Level 3.1 g/dL (3.4-5.0); Alkaline Phosphatase 79 U/L (46-116); Anion Gap 6 mmol/L (8-16); Aspartate Amino Transferase 19 U/L (15-37); Bilirubin,Total 0.2 mg/dL (0.00-1.00); Blood Urea Nitrogen 20 mg/dL (7-18); Calcium 9.1 mg/dL (8.5-10.1); Carbon Dioxide 27 mmol/L (21-32); Chloride 109 mmol/L (98-108); Estimated CRCL calculation 66 ml/min; Estimated Glomerular Filt Rate 53; Glucose 95 mg/dL (70-99); Magnesium 1.9 mg/dL (1.8-2.4); NT Pro B Type Natriuretic Pept 674 pg/mL (0-125); Osmolality Calculated 296 mOsm/kg (285-295); Potassium 4.3 mmol/L (3.5-5.1); Sodium 142 mmol/L (136-145); Total Protein 7.4 g/dL (6.4-8.2); Troponin I 14.9 ng/L (0.00-60.4)
--- NOTE | 2022-04-04 07:52 | PC.NURSE ---
LAB REPORTED ELEVATED D DIMER OF 0.84, ERP NOTIFIED AND CT WAS ORDERED. IV SITE ESTABLISHED. PT AND UPDATED. WILL CONTINUE TO MONITOR.
[2022-04-04 07:53] LABS: Influenza A QL RT-PCR Negative (Negative); Influenza B QL RT-PCR Negative (Negative); SARS-CoV-2 RNA PCR Negative (Negative)
[2022-04-04 08:06] LABS: RSV RNA, RT-PCR Negative (Negative)
--- NOTE | 2022-04-04 08:07 | PC.NURSE ---
PT RETURNED FROM CT AT THIS TIME.
--- NOTE | 2022-04-04 08:56 | PC.NURSE ---
PT IS AWAITING ERP DECISION AT THIS TIME. PT WILL NOT LEAVE ON PULSE OX. NAD NOTED. WILL CONTINUE TO MONITOR. PT IS IN NAD AT THIS TIME.
--- NOTE | 2022-04-04 09:07 | PC.NURSE ---
PT IS USING URINAL AT BEDSIDE.
--- NOTE | 2022-04-04 09:44 | PC.NURSE ---
PT HAS BEEN BRADYCARDIC INTERMITTENTLY, ERP IS AWARE. THIS IS A POSSIBLE SIDE EFFECT OF HIS CANCER MEDICATION. ERP AT BEDSIDE AT THIS TIME. WILL CONTINUE TO MONITOR.
== END 2022-04-04 09:55 | disposition home or self-care (01) ==
PROVIDERS: Emergency Medicine; Emergency Provider Emergency Medicine; PCP Physician Assistant
DX: R00.1 Bradycardia, unspecified (principal)
CPT/HCPCS: 36415; 71045; 71275; 80053; 81003; 83735; 83880; 84484; 85025; 85380; 85610; 85730; 87040; 87502; 93005; 94640; 99284; Q9967; U0003; U0005